=== PATIENT | male | born 1980 | race Two or more races ===

== ENCOUNTER 2016-04-04 20:54 | Inpatient (IN) | payer MEDICAID, OTHER ==
[2016-04-04] VITALS (7 sets, daily range): BP systolic 98–133; BP diastolic 64–104
[~2016-04-04] VITALS: Ht 172.7 cm; Wt 63.5 kg
[2016-04-04] MEDS ORDERED: PIPERACILLIN /TAZOBACTAM 3.375 G VIAL IV ONE (21:17)
[2016-04-04] MEDS ORDERED: VANCOMYCIN 1 GM VIAL ONE (21:17)
[2016-04-04] MEDS ORDERED: IV NS 0.9% 250 ML IV ONE (21:17)
[2016-04-04] MEDS ORDERED: LEVOFLOXACIN 750 MG /D5W 150ML 150 ML IV ONE ×2 (21:17→21:30)
[2016-04-04] MEDS ORDERED: IV NS 0.9% 2,000 ML ONE (21:17)
[2016-04-04] MEDS ORDERED: IV SET PRIMARY PUMP SET 1 EA INFUS.SET MC ONE ×2 (21:18→23:14)
[2016-04-04] MEDS ORDERED: IV NS 0.9% 50 ML IV ONE (21:18)
[2016-04-04] MEDS ORDERED: IV SET PRIMARY 1 EA INFUS.SET MC ONE (21:26)
[2016-04-04] MEDS ORDERED: VANCOMYCIN 1 GM in IV D5W 250 ML IV ONE (21:30)
[2016-04-04] MEDS ORDERED: IPRA3AMP IH (21:30)
[2016-04-04] MEDS ORDERED: PIPERACILLIN /TAZOBACTAM 3.375 G in IV D5W 50 ML IV ONE (21:30)
[2016-04-04] MEDS ORDERED: VANC500V IV (21:30)
[2016-04-04] MEDS ORDERED: BISA10SU61 RC (21:30)
[2016-04-04] MEDS ORDERED: QUET25TA GT (21:30)
[2016-04-04] MEDS ORDERED: FOLI1TAB16 GT (21:30)
[2016-04-04] MEDS ORDERED: DIPH60LI2 GT (21:30)
[2016-04-04] MEDS ORDERED: ACET160S3 GT (21:30)
[2016-04-04] MEDS ORDERED: SERT25TA GT (21:30)
[2016-04-04] MEDS ORDERED: CEFT1VIA55 IJ (21:30)
[2016-04-04] MEDS ORDERED: INSU100V7 SQ (21:30)
[2016-04-04] MEDS ORDERED: HEPA500013 SQ (21:30)
[2016-04-04] MEDS ORDERED: SEVE0.8P PO (21:30)
[2016-04-04] MEDS ORDERED: FOLI0.8T2 GT (21:30)
[2016-04-04] MEDS ORDERED: ATRO2DRO4 SL (21:30)
[2016-04-04] MEDS ORDERED: INSU100C10 SQ (21:30)
[2016-04-04] MEDS ORDERED: DARB100V SQ (21:30)
[2016-04-04] MEDS ORDERED: DOCU-170 GT (21:30)
[2016-04-04] MEDS ORDERED: ZOLP5TAB2 GT (21:30)
[2016-04-04] MEDS ORDERED: DIPH25CA83 GT (21:30)
[2016-04-04] MEDS ORDERED: IV NS 0.9% 1,000 ML BAG IV ONE (21:30)
[2016-04-04] MEDS ORDERED: ALLO100T GT (21:30)
[2016-04-04] MEDS ORDERED: ALBU2.5V12 NEB (21:30)
[2016-04-04] MEDS ORDERED: GABA-534 GT (21:30)
[2016-04-04] MEDS ORDERED: CHOL4PAC9 GT (21:30)
[2016-04-04] MEDS ORDERED: ONDA4TAB5 GT (21:30)
[2016-04-04] MEDS ORDERED: LORA0.5T GT (21:30)
[2016-04-04] MEDS ORDERED: FAMO-131 GT (21:30)
[2016-04-04] MEDS ORDERED: CHOL3000 GT (21:30)
[2016-04-04 21:43] LABS: BASOPHILS # (AUTO) 0.2 /CMM (0.0-0.2); BASOPHILS % (AUTO) 1.5 % (0.0-2.0); DIFF TOTAL % 100 %; EOSINOPHILS # (AUTO) 0.2 /CMM (0.0-0.7); EOSINOPHILS % (AUTO) 1.5 % (0.0-6.0); HEMATOCRIT 27 % (39-51); HEMOGLOBIN 8.4 g/dL (13.5-17.5); LYMPHOCYTES # (AUTO) 0.8 /CMM (0.8-4.8); LYMPHOCYTES % (AUTO) 7.1 % (20.0-44.0); MEAN CORPUSCULAR HEMOGLOBIN 26 PG (26.0-33.0); MEAN CORPUSCULAR HGB CONC 31 g/dl (31.0-36.0); MEAN CORPUSCULAR VOLUME 86 fL (80-96); MONOCYTES # (AUTO) 0.8 /CMM (0.1-1.30); MONOCYTES % (AUTO) 7.3 % (2.0-12.0); NEUTROPHILS # (AUTO) 8.8 /CMM (1.8-8.9); NEUTROPHILS % (AUTO) 82.6 % (43.0-81.0); PLATELET COUNT (AUTO) 316 /CMM (150-450); RED BLOOD CELL COUNT(AUTO) 3.19 MIL/uL (4.5-6.0); WHITE BLOOD COUNT (AUTO) 10.8 K/uL (4.3-11.0)
[2016-04-04 21:47] LABS: INR 3.96 (0.87-1.13); PROTHROMBIN TIME 41.6 SECS (9.5-12.7)
[2016-04-04 21:48] LABS: ANION GAP 16 (5-14); CARBON DIOXIDE 20 mmol/L (21-32); CHLORIDE 99 mmol/L (98-107); CREATININE 3.4 mg/dL (0.6-1.3); GFR 20 mL/min (>60); GLUCOSE 215 mg/dL (74-106); POTASSIUM 5.7 mmol/L (3.5-5.1); SODIUM SERUM 129 mmol/L (136-145); UREA NITROGEN, BLOOD 53 mg/dL (7-18)
[2016-04-04 21:50] LABS: TROPONIN I < 0.017 ng/mL (0.00-0.056)
[2016-04-04 21:56] LABS: ALANINE AMINOTRANSFERASE 8 U/L (12-78); ALBUMIN 2.5 g/dL (3.4-5.0); ASPARTATE AMINOTRANSFERASE 10 U/L (15-37); BILIRUBIN,DIRECT 0.1 mg/dL (0.0-0.2); BILIRUBIN,TOTAL 0.4 mg/dL (0.2-1.0); INDIRECT BILIRUBIN 0.3 mg/dL (0.0-1.1); TOTAL PROTEIN, SERUM 7.1 g/dL (6.4-8.2)
[2016-04-04 21:57] LABS: LACTIC ACID 0.9 mmol/L (0.4-2.0)
[2016-04-04] MEDS ORDERED: IV NS 0.9% 1,000 ML IV PRN (22:16)
[2016-04-04] MEDS ORDERED: ATROPINE SULFATE OPHTH SOLN 15 ML BOTTLE SL PRN (22:30)
[2016-04-04] MEDS ORDERED: MAGNESIUM HYDROXIDE 30 ML UDC PO PRN (22:30)
[2016-04-04] MEDS ORDERED: BISACODYL SUPP (10 MG) 10 MG/SUPP.RECT SUPP.RECT RC PRN (22:30)
[2016-04-04] MEDS ORDERED: diphenhydrAMINE HCL 25 MG CAPSULE MC PRN (22:30)
[2016-04-04] MEDS ORDERED: Z GUARD REMEDY 2 OZ OINT TP PRN (22:30)
[2016-04-04] MEDS ORDERED: ZOLPIDEM TARTRATE 5 MG TABLET GT PRN (22:30)
[2016-04-04] MEDS ORDERED: ALBUTEROL FS 2.5 MG/0.5 ML VIAL.NEB NEB PRN (22:30)
[2016-04-04] MEDS ORDERED: MAG HYDROX/AL HYDROX/SIMETH 30 ML UDC PO PRN (22:30)
[2016-04-04] MEDS ORDERED: LORAZEPAM 0.5 MG TABLET GT PRN (22:30)
[2016-04-04] MEDS ORDERED: ONDANSETRON HCL/PF 4 MG/2 ML VIAL IVP PRN (22:30)
[2016-04-04] MEDS ORDERED: ACETAMINOPHEN 650 MG/20.3 ML UDC GT PRN (22:30)
[2016-04-04] MEDS ORDERED: HYDROMORPHONE INJ 2 MG/ML DISP.SYRIN IV PRN (22:30)
[2016-04-04] MEDS ORDERED: RENAL NOVASOURCE 1,000 ML BOTTLE ONE (23:58)
[2016-04-05] VITALS (51 sets, daily range): BP systolic 92–158; BP diastolic 45–92
[2016-04-05] MEDS ORDERED: *INSULIN REGULAR(HUMULIN R)HUM 100 UNIT/ML VIAL SQ PRN
[2016-04-05] MEDS ORDERED: SODIUM POLYSTYRENE SULFONATE 15 G/60 ML BOTTLE GT ONE
[2016-04-05] MEDS ORDERED: SODIUM POLYSTYRENE SULFONATE 15 G/60 ML BOTTLE ONE (00:22)
[2016-04-05] MEDS ORDERED: RENAL NOVASOURCE 1,000 ML BOTTLE GT PRN ×2 (00:30→08:29)
[2016-04-05] MEDS ORDERED: ZOLPIDEM TARTRATE 5 MG TABLET ONE (00:49)
[2016-04-05] MEDS ORDERED: ACETAMINOPHEN 650 MG/20.3 ML UDC ONE (00:59)
[2016-04-05] MEDS ORDERED: IV NS 0.9% 1,000 ML ONE (01:00)
[2016-04-05 04:44] LABS: BASOPHILS # (AUTO) 0.3 /CMM (0.0-0.2); BASOPHILS % (AUTO) 2.2 % (0.0-2.0); DIFF TOTAL % 100 %; EOSINOPHILS # (AUTO) 0.1 /CMM (0.0-0.7); EOSINOPHILS % (AUTO) 0.8 % (0.0-6.0); HEMATOCRIT 25 % (39-51); HEMOGLOBIN 7.4 g/dL (13.5-17.5); LYMPHOCYTES # (AUTO) 0.8 /CMM (0.8-4.8); LYMPHOCYTES % (AUTO) 6.2 % (20.0-44.0); MEAN CORPUSCULAR HEMOGLOBIN 26 PG (26.0-33.0); MEAN CORPUSCULAR HGB CONC 30 g/dl (31.0-36.0); MEAN CORPUSCULAR VOLUME 86 fL (80-96); MONOCYTES # (AUTO) 0.9 /CMM (0.1-1.30); MONOCYTES % (AUTO) 7.3 % (2.0-12.0); NEUTROPHILS # (AUTO) 10.2 /CMM (1.8-8.9); NEUTROPHILS % (AUTO) 83.5 % (43.0-81.0); PLATELET COUNT (AUTO) 306 /CMM (150-450); RED BLOOD CELL COUNT(AUTO) 2.86 MIL/uL (4.5-6.0); WHITE BLOOD COUNT (AUTO) 12.2 K/uL (4.3-11.0)
[2016-04-05 04:55] LABS: ALBUMIN 2.2 g/dL (3.4-5.0); CALCIUM, SERUM 8.4 mg/dL (8.5-10.1); CREATININE 3.4 mg/dL (0.6-1.3); PHOSPHORUS 6.7 mg/dL (2.5-4.9); POTASSIUM 5.6 mmol/L (3.5-5.1)
[2016-04-05 05:33] LABS: ANISOCYTOSIS 2+; HYPOCHROMASIA 1+
[2016-04-05 06:33] LABS: ABG BASE EXCESS -10.8 mmol/L; ABG HCO3 15.7 mmol/L; ABG PCO2 37.5 mmHg (35.0-45.0); ABG PO2 70.8 mmHg (75.0-100.0); ALLEN TEST Pass; AaDO2 243.5 mmHg; O2Hb 88.2 % (94.0-97.0)
[2016-04-05] MEDS ORDERED: ZOLPIDEM TARTRATE 5 MG TABLET GT PRN (07:38)
[2016-04-05] MEDS ORDERED: VANCOMYCIN 500 MG in IV D5W 100 ML IV PRN (08:00)
[2016-04-05] MEDS ORDERED: ONDANSETRON 4 MG TAB.RAPDIS GT PRN (08:30)
[2016-04-05] MEDS ORDERED: ACETAMINOPHEN 650 MG/20.3 ML UDC GT PRN (08:32)
[2016-04-05] MEDS: BLOOD SUGAR DIAGNOSTIC 1 EACH STRIP VI SCH ×3 (08:36→16:31)
[2016-04-05] MEDS ORDERED: FEE PK DOSING 1 MIN EA MC ONE (08:40)
[2016-04-05] MEDS: PIPERACILLIN /TAZOBACTAM 2.25 G in IV D5W 50 ML IV SCH ×3 (08:54→17:02)
[2016-04-05] MEDS: CHOLESTYRAMINE/ASPARTAME 4 G/PKT PACKET GT SCH ×2 (08:54→16:27)
[2016-04-05] MEDS: SEVELAMER CARBONATE 0.8 GM POWD.PACK GT SCH ×3 (08:54→17:02)
[2016-04-05] MEDS: DOCUSATE SODIUM 100 MG CAPSULE PO SCH ×2 (08:55→16:24)
[2016-04-05] MEDS: GABAPENTIN 300 MG CAPSULE GT SCH ×2 (08:55→16:27)
[2016-04-05] MEDS ORDERED: VIT B CMPLX 3/FA/VIT C/BIOTIN 1 TAB TABLET GT SCH (09:00)
[2016-04-05] MEDS ORDERED: DIPHENOXYLATE HCL/ATROP SULF 5 ML UDC GT SCH (09:00)
[2016-04-05] MEDS ORDERED: IPRATROPIUM NEB FS 0.5 MG/2.5 ML AMPUL.NEB NEB PRN (09:00)
[2016-04-05] MEDS ORDERED: FOLIC ACID 1 MG TABLET GT SCH (09:00)
[2016-04-05] MEDS ORDERED: ALLOPURINOL 100 MG TABLET GT SCH (09:00)
[2016-04-05] MEDS ORDERED: CHOLECALCIFEROL 1,000 UNIT TABLET (VIT D3) GT SCH (09:00)
[2016-04-05] MEDS ORDERED: SERTRALINE HCL 25 MG TABLET GT SCH (09:00)
[2016-04-05] MEDS ORDERED: QUETIAPINE FUMARATE 25 MG TABLET GT SCH (09:00)
[2016-04-05] MEDS ORDERED: HEPARIN SODIUM, PORCINE 5000 UNITS/1 ML VIAL SQ SCH (09:00)
[2016-04-05] MEDS ORDERED: SECONDARY IV SET 1 EA INFUS.SET MC ONE ×2 (09:07→10:26)
[2016-04-05] MEDS: INSULIN REGULAR, HUMAN 100 UNIT/ML 3 ML VIAL SQ PRN ×2 (09:25→11:39)
[2016-04-05] MEDS ORDERED: HYDROGEL DRESSING 90 GM TUBE TP PRN (09:30)
[2016-04-05] MEDS ORDERED: HYDROGEL DRESSING 90 GM TUBE TP SCH (09:30)
[2016-04-05] MEDS ORDERED: ALBUMIN 25% 25 GM in PREMIX 1 EA IV STA (09:56)
[2016-04-05] MEDS ORDERED: VANC1PLA9 IV (10:27)
[2016-04-05] MEDS ORDERED: PIPE3.376 IV (10:27)
[2016-04-05] MEDS ORDERED: DIPHENOXYLATE HCL/ATROP SULF 5 ML UDC GT PRN (10:30)
[2016-04-05] MEDS ORDERED: QUETIAPINE FUMARATE 25 MG TABLET GT PRN (11:30)
[2016-04-05] MEDS ORDERED: ALBUMIN 25% 25 GM in PREMIX 1 EA IV PRN (11:30)
[2016-04-05] MEDS ORDERED: ALBUTEROL FS 2.5 MG/0.5 ML VIAL.NEB NEB PRN (13:30)
[2016-04-05] MEDS ORDERED: IV NS 0.9% 1,000 ML IV PRN (13:33)
[2016-04-05] MEDS ORDERED: INSULIN REGULAR, HUMAN 100 UNIT/ML 3 ML VIAL SQ PRN (17:30)
[2016-04-05] MEDS ORDERED: DEXTROSE 50%-WATER 50 ML DISP.SYRIN IV PRN ×2 (17:30)
[2016-04-05] MEDS ORDERED: BLOOD SUGAR DIAGNOSTIC 1 EACH STRIP IN SCH (18:00)
[2016-04-05] MEDS ORDERED: FAMOTIDINE (20 MG) 20 MG TABLET GT SCH (22:00)
== END 2016-04-05 20:30 | disposition short-term general hospital (02) | DRG 720 ==
LOC: ER 20:56 → ICU 22:24
PROVIDERS: ADMIT Internal Medicine; ATTEND Internal Medicine
PROC: 5A1D00Z (ICD-10-PCS; principal; 2016-04-05)
DX: A41.9 Sepsis, unspecified organism (principal); E43 Unspecified severe protein-calorie malnutrition; J96.11 Chronic respiratory failure with hypoxia; J90 Pleural effusion, not elsewhere classified; G92 Toxic encephalopathy; Z93.0 Tracheostomy status; R53.2 Functional quadriplegia; J18.9 Pneumonia, unspecified organism; R65.20 Severe sepsis without septic shock; N18.6 End stage renal disease; R13.10 Dysphagia, unspecified; Z93.1 Gastrostomy status; Z99.2 Dependence on renal dialysis; F41.9 Anxiety disorder, unspecified; E11.22 Type 2 diabetes mellitus with diabetic chronic kidney disease; F32.9 Major depressive disorder, single episode, unspecified; J98.11 Atelectasis; E87.5 Hyperkalemia; D64.9 Anemia, unspecified; I12.0 Hypertensive chronic kidney disease with stage 5 chronic kidney disease or end stage renal disease; Z68.21 Body mass index [BMI] 21.0-21.9, adult
CPT/HCPCS: 31720; 36415; 36600; 71010-TC; 80048-TC; 80076-TC; 80202-TC; 82040-TC; 82962-TC; 83540-TC; 83605-TC; 83735-TC; 84100-TC; 84484-TC; 85025-TC; 85730-TC; 86850-TC; 86901; 87040-TC; 87081-TC; 87400; 90935-TC; 94002-TC; 94003-TC; A4216; A4606; A6248; J1644; J1815; J1956; J2543; J3370; J7030; J7050; J7060; P9047; Z7610